=== PATIENT | female | born 1995 | race Caucasian/White ===

== ENCOUNTER 2016-11-08 14:48 | Emergency (ER) | payer BC ==
[~2016-11-08] VITALS: Ht 167.6 cm; Wt 54.4 kg
[2016-11-08] MEDS ORDERED: levETIRAcetam 500mg vial IV ONE (14:57)
--- NOTE | 2016-11-08 14:57 | Emergency Room Report ---
History of Present Illness General Source: Patient, EMS Present Illness HPI Patient presents via EMS after generalized tonic clonic seizure prior to their being called. She's had a seizure in the past. She had MRI and CT which were normal. They elected not to treat her with medications. She had no recollection or warning sign of a seizure coming on today. She has some tenderness in the back of her head and neck which is mild. They placed her in C -spine precautions. The patient denies alcohol or drug usage. She also states that she is not at this time. She did not bite her tongue. No fevers, cough, SHULTZ, URI, NVD, dysuria, rashes. 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[employer] [facility] Reviewed Nursing Documentation: PMH: Agreed, PSxH: Agreed Review of Systems All Other Systems: negative except mentioned in HPI Physical Exam Vital Signs Date Time Temp Pulse Resp B/P Pulse Ox O2 Delivery O2 Flow Rate FiO2 11/08/16 14:48 97.9 78 16 93/63 98 Room Air Sp02 EP Interpretation: reviewed, normal General Appearance: well appearing, no apparent distress, GCS 15 Head: normocephalic, other - occiput min tend, no hematoma Eyes: bilateral eye EOMI, bilateral eye PERRL, bilateral eye normal inspection ENT: moist mucus membranes - no lingual macerations Neck: full range of motion, supple, tender - base of head Respiratory: chest non-tender, lungs clear, normal breath sounds Cardiovascular #1: regular rate, rhythm Cardiovascular #2: 2+ radial (R) Gastrointestinal: normal inspection, normal bowel sounds, non tender, no mass, non-distended, scaphoid Musculoskeletal: back normal, gait/station normal, normal range of motion Neurologic: alert, oriented x3, 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 This is her second episode. She's not taking any medications at this time. Differential includes a electrolyte abnormality, untreated epilepsy, post syncopal seizure amongst others. She's has a CT and MRI done in the past in her exam is nonfocal at this time therefore CT is not indicated at this time. However evaluation will be undertaken with EKG, labs. She'll be treated with Ativan and begun on Keppra. She'll given 500 mg IV and 500 mg by mouth. In addition she will receive Tylenol for the neck tenderness that she has. No significant bony tenderness and x-rays are not indicated at this time. EKG unremarkable. Labs unremarkable. Patient tolerated meds. Some headache. Toradol given with improvement. Patient stable for outpatient observation and treatment. Discussed seizure precautions as well as need for further neurologic evaluation. Laboratory Tests Test 11/08/16 15:00 11/08/16 16:50 White Blood Count 8.8 K/UL (4.8-10.8) Red Blood Count 4.63 M/UL (4.20-5.40) Hemoglobin 13.3 G/DL (12.0-16.0) Hematocrit 42.3 % (37.0-47.0) Mean Corpuscular Volume 91 FL (80-99) Mean Corpuscular Hemoglobin 28.7 PG (27.0-31.0) Mean Corpuscular Hemoglobin Concent 31.4 G/DL (32.0-36.0) L Red Cell Distribution Width 11.9 % (11.6-14.8) Platelet Count 357 K/UL (150-450) Mean Platelet Volume 7.7 FL (6.5-10.1) Neutrophils (%) (Auto) 71.6 % (45.0-75.0) Lymphocytes (%) (Auto) 21.0 % (20.0-45.0) Monocytes (%) (Auto) 6.0 % (1.0-10.0) Eosinophils (%) (Auto) 0.1 % (0.0-3.0) Basophils (%) (Auto) 1.3 % (0.0-2.0) Sodium Level 141 mEQ/L (135-145) Potassium Level 3.9 mEQ/L (3.4-4.9) Chloride Level 100 mEQ/L (98-107) Carbon Dioxide Level 22 mEQ/L (20-30) Anion Gap 19 (5-15) H Blood Urea Nitrogen 9 mg/dL (7-23) Creatinine 0.8 mg/dL (0.5-0.9) Estimate Glomerular Filtration Rate > 60 mL/min (>60) Glucose Level 100 mg/dL (74-106) Calcium Level 9.6 mg/dL (8.6-10.2) Total Bilirubin 0.4 mg/dL (0.0-1.2) Aspartate Amino Transferase (AST) 15 U/L (5-40) Alanine Aminotransferase (ALT) 9 U/L (3-33) Alkaline Phosphatase 58 U/L (35-104) Total Creatine Kinase 56 U/L (26-140) Total Protein 8.0 g/dL (6.6-8.7) Albumin 5.1 g/dL (3.5-5.2) Globulin 2.9 g/dL Albumin/Globulin Ratio 1.7 (1.0-2.7) Urine Color Pale yellow Urine Appearance Clear Urine pH 6 (4.5-8.0) Urine Specific [place] 1.005 (1.005-1.035) Urine Protein Negative (NEGATIVE) Urine Glucose (UA) Negative (NEGATIVE) Urine Ketones 2+ (NEGATIVE) H Urine Occult Blood Negative (NEGATIVE) Urine Nitrite Negative (NEGATIVE) Urine Bilirubin Negative (NEGATIVE) Urine Urobilinogen Normal MG/DL (0.0-1.0) Urine Leukocyte Esterase Negative (NEGATIVE) Urine HCG, Qualitative Negative EKG Diagnostic Results Rate: normal Rhythm: NSR ST Segments: no acute changes - sinus arrhythmia Rhythm Strip Diag. Results EP Interpretation: yes Rhythm: NSR, no PVC's, no ectopy Last Vital Signs Date Time Temp Pulse Resp B/P Pulse Ox O2 Delivery O2 Flow Rate FiO2 11/08/16 17:21 97.9 74 18 104/61 100 Room Air Status: improved Disposition: HOME, SELF-CARE - with co-worker Condition: Improved Scripts Levetiracetam (Keppra) 250 Mg Tablet 500 MG ORAL EVERY 12 HOURS, #60 TAB 0 Refills Prov: Aries Chi M.D. 11/08/16 Aries Chi M.D. Nov 08, 2016 14:57
[2016-11-08] MEDS ORDERED: LORazepam Inj 2mg/ml 1ml IV ONE (15:00)
[2016-11-08] MEDS ORDERED: levETIRAcetam 500 MG in D5W 110 ML IV ONE (15:00)
[2016-11-08 15:17] VITALS: BP 93/63
[2016-11-08 15:26] LABS: BASOPHILS % (AUTO) 1.3 % (0.0-2.0); EOSINOPHILS % (AUTO) 0.1 % (0.0-3.0); MEAN CORPUSCULAR HEMOGLOBIN 28.7 PG (27.0-31.0); MEAN CORPUSCULAR HGB CONC 31.4 G/DL (32.0-36.0); MEAN CORPUSCULAR VOLUME 91 FL (80-99); MEAN PLATELET VOLUME 7.7 FL (6.5-10.1); NEUTROPHILS % (AUTO) 71.6 % (45.0-75.0); PLATELET COUNT 357 K/UL (150-450); RED BLOOD COUNT 4.63 M/UL (4.20-5.40); RED CELL DISTRIBUTION WIDTH 11.9 % (11.6-14.8); WHITE BLOOD COUNT 8.8 K/UL (4.8-10.8)
[2016-11-08 15:41] LABS: ALANINE AMINOTRANSFERASE 9 U/L (3-33); ALBUMIN/GLOBULIN RATIO 1.7 (1.0-2.7); ANION GAP 19 (5-15); ASPARTATE AMINO TRANSFERASE 15 U/L (5-40); CALCIUM 9.6 mg/dL (8.6-10.2); CARBON DIOXIDE 22 mEQ/L (20-30); CHLORIDE 100 mEQ/L (98-107); CREATININE 0.8 mg/dL (0.5-0.9); GLOMERULAR FILTRATION RATE > 60 mL/min (>60); HEMOLYSIS 5; POTASSIUM 3.9 mEQ/L (3.4-4.9); SODIUM 141 mEQ/L (135-145)
[2016-11-08] MEDS ORDERED: Ketorolac 30mg Inj IV ONE (16:30)
[2016-11-08 17:05] LABS: APPEARANCE,URINE CLEAR; KETONES,URINE 2+ (NEGATIVE); LEUKOCYTE ESTERASE ,URINE NEGATIVE (NEGATIVE); NITRITE,URINE NEGATIVE (NEGATIVE); PH,URINE 6 (4.5-8.0); PROTEIN,URINE NEGATIVE (NEGATIVE); UROBILINOGEN,URINE NORMAL MG/DL (0.0-1.0)
[2016-11-08] MEDS ORDERED: KEPPRA500 MG ORAL (17:12)
[2016-11-08 17:16] VITALS: BP 104/61
[2016-11-08 17:21] VITALS: BP 104/61
--- NOTE | 2016-11-10 15:41 | Cardiology Report ---
APPROVED REPORT EKG Measurement Heart [id number] Normal sinus rhythm with sinus arrhythmia Normal ECG
== END 2016-11-08 17:21 | disposition home or self-care (01) ==
LOC: EDBD 14:48 → EMR 15:06
DX: R56.9 Unspecified convulsions (principal)
CPT/HCPCS: 36415; 80053; 80299; 81003; 81025; 82550; 85025; 93005; 96374; 96375; 99284; J1885; J1953; J7040

== ENCOUNTER 2017-06-24 15:40 | Emergency (ER) | payer SELFPAY ==
[~2017-06-24] VITALS: Ht 167.6 cm; Wt 59.0 kg
[~2017-06-24 15:40] MED LIST: KEPPRA500 MG ORAL
[2017-06-24] MEDS ORDERED: NKM (15:50)
[2017-06-24 15:54] VITALS: BP 121/80
--- NOTE | 2017-06-24 16:10 | Emergency Room Report ---
History of Present Illness General Chief Complaint: General Complaint Source: Patient, Medical Record Present Illness HPI 22 yo female patient presents to ER complaining of vaginal spotting x3 months. Reports LMP was from May 29 to . Reports spotting since that time, intermittently. Reports uses 1-5 pads daily. Denies sharp abdominal pain, denies radiation of pain. Denies back pain. Denies currently. Reports , hx of surgical July 2016. Denies hx of PAP smear or OBGYN visit. Denies hx of fainting. Denies passage of clots. Denies dysuria, frequency, urgency. Denies hx of STI. Reports sexually active with one partners, uses protection. Denies use of control for 3 years. Reports hx of anemia. Denies fever, chest pain, SOB, calf pain, SHULTZ, vision changes. Also requesting medical clearance for driving, hx of seizure last year. Allergies: Coded Allergies: No Known Allergies (Unverified , 11/08/16) Patient History Past Medical History: see triage record Last Menstrual Period: 05/29/17 Reviewed Nursing Documentation: PMH: Agreed; PSxH: Agreed Nursing Documentation-PMH Past Medical History: No History, Except For Hx Cardiac Problems: No Hx Hypertension: No Hx Pacemaker: No Hx Asthma: No Hx COPD: No Hx Diabetes: No Hx Cancer: No Hx Gastrointestinal Problems: No Hx Dialysis: No Hx Neurological Problems: No Hx Cerebrovascular Accident: No Hx Seizures: Yes - 11/04 Review of Systems All Other Systems: negative except mentioned in HPI Physical Exam Vital Signs Date Time Temp Pulse Resp B/P (MAP) Pulse Ox O2 Delivery O2 Flow Rate FiO2 06/24/17 15:44 98.4 100 18 121/80 96 Room Air 98.4 Sp02 EP Interpretation: reviewed, normal General Appearance: well appearing, no apparent distress, alert, GCS 15, non- toxic Head: normocephalic, atraumatic Eyes: bilateral eye normal inspection, bilateral eye PERRL Neck: full range of motion Respiratory: lungs clear, normal breath sounds, no rhonchi, no respiratory distress, no accessory muscle use, no wheezing, speaking full sentences Cardiovascular #1: regular rate, rhythm, no edema Gastrointestinal: non tender, soft, no mass, non-distended, no guarding, no rebound Genitourinary: no CVA tenderness, deferred Musculoskeletal: back normal, digits/nails normal, gait/station normal, normal range of motion, non-tender Neurologic: alert, oriented x3, responsive, motor strength/tone normal, sensory intact Skin: no rash Lymphatic: no adenopathy Medical Decision Making PA Attestation Dr. Barboza is my supervising Physician whom patient management has been discussed with. Diagnostic Impression: Primary Impression: Metrorrhagia ER Course Pt presents to ED c/o vaginal spotting. DDX considered but are not limited to menstruation, UTI, . Denies abdominal pain, dizziness, syncope, symptoms of anemia. Does not require labs or imaging at this time. Ordered UA and urine . ER COURSE: Patient resting comfortably, in no acute distress, nontoxic appearing. Informed patient cannot provide medical clearance for driving in ER. Needs approval and clearance from primary care provider. Patient reports understanding and agreement to treatment plan. UA results negative for nitrites, low suspicion for UTI, does not require treatment at this time. Urine negative. Discuss results with patient. Informed patient need outpatient followup and treatment for cause of metrorrhagia and vaginal spotting. F/u with primary care provider for further testing and labs. Does not require evaluation in ER at this time. F/u with OBGYN. F/u with STI clinic if concern for STI. Reports no concern for STI at this time. DISCHARGE: At this time pt. is stable for d/c to home. At this time patient is resting comfortably, in no acute distress, nontoxic appearing, smiling and talking without difficulty. Will provide printed patient care instructions, and any necessary prescriptions. Patient instructed to follow with PCP for further evaluation and request referral to OBGYN for further treatment as needed. Care plan and follow up instructions have been discussed with the patient prior to discharge. Patient reports understanding and agreement to treatment plan. Patient questions asked and answered. ER precautions given, patient instructed to return to ER immediately for any new or worsening of symptoms. Labs Test 06/24/17 16:25 Urine Color Yellow Urine Appearance Clear Urine pH 7 (4.5-8.0) Urine Specific [place] 1.015 (1.005-1.035) Urine Protein 1+ (NEGATIVE) Urine Glucose (UA) Negative (NEGATIVE) Urine Ketones Negative (NEGATIVE) Urine Occult Blood Negative (NEGATIVE) Urine Nitrite Negative (NEGATIVE) Urine Bilirubin Negative (NEGATIVE) Urine Urobilinogen 1 MG/DL (0.0-1.0) Urine Leukocyte Esterase 1+ (NEGATIVE) Urine RBC 0-2 /HPF (0 - 2) Urine WBC 2-4 /HPF (0 - 2) Urine Squamous Epithelial Cells Few /LPF (NONE/OCC) Urine Amorphous Sediment Few /LPF (NONE) Urine Bacteria Few /HPF (NONE) Urine HCG, Qualitative Negative (NEGATIVE) Last Vital Signs Date Time Temp Pulse Resp B/P (MAP) Pulse Ox O2 Delivery O2 Flow Rate FiO2 06/24/17 15:54 98.4 100 18 121/80 96 Room Air 98.4 Disposition: HOME, SELF-CARE Condition: Stable Additional Instructions: Followup with primary care provider in 3 -5 days. Need workup for irregular bleeding. Referral needed for OBGYN. Need PAP smear. Primary care provider can provide medical clearance, not able to provide in ER. Take medications as directed. Patient questions asked and answered. ER precautions given, patient instructed to return to ER immediately for any new or worsening of symptoms. Ricardo Kulkarni Jun 24, 2017 16:10
[2017-06-24 16:41] LABS: APPEARANCE,URINE CLEAR; BILIRUBIN, URINE NEGATIVE (NEGATIVE); GLUCOSE, URINE (UA) NEGATIVE (NEGATIVE); KETONES,URINE NEGATIVE (NEGATIVE); LEUKOCYTE ESTERASE ,URINE 1+ (NEGATIVE); NITRITE,URINE NEGATIVE (NEGATIVE); PH,URINE 7 (4.5-8.0); PROTEIN,URINE 1+ (NEGATIVE); UROBILINOGEN,URINE 1 MG/DL (0.0-1.0)
[2017-06-24 16:44] LABS: COLOR,URINE YELLOW
[2017-06-24 17:02] VITALS: BP 121/80
== END 2017-06-24 17:03 | disposition home or self-care (01) ==
LOC: EMR 16:40
DX: N92.0 Excessive and frequent menstruation with regular cycle (principal)
CPT/HCPCS: 81003; 81025; 99283

== ENCOUNTER 2019-11-23 15:56 | Emergency (ER) | payer SELFPAY ==
[~2019-11-23] VITALS: Ht 167.6 cm; Wt 58.1 kg
[~2019-11-23 15:56] MED LIST changes: +NKM
[2019-11-23 16:05] VITALS: BP 110/68
[2019-11-23 16:26] LABS: APPEARANCE,URINE CLEAR; BILIRUBIN, URINE NEGATIVE (NEGATIVE); COLOR,URINE YELLOW; GLUCOSE, URINE (UA) NEGATIVE (NEGATIVE); KETONES,URINE 4+ (NEGATIVE); LEUKOCYTE ESTERASE ,URINE NEGATIVE (NEGATIVE); NITRITE,URINE NEGATIVE (NEGATIVE); PH,URINE 6 (4.5-8.0); PROTEIN,URINE 2+ (NEGATIVE); UROBILINOGEN,URINE NORMAL MG/DL (0.0-1.0)
[2019-11-23] MEDS ORDERED: Mylanta II UD 30ml ORAL ONE (16:30)
[2019-11-23] MEDS ORDERED: Dicyclomine HCl 10mg/5ml oral soln ORAL ONE (16:30)
[2019-11-23] MEDS ORDERED: Lidocaine 2% Visc 15ml soln ORAL ONE (16:30)
[2019-11-23 16:37] LABS: ANION GAP 13 mmol/L (5-15); BLOOD UREA NITROGEN 12 mg/dL (7-18); CARBON DIOXIDE 29 MMOL/L (21-32); CHLORIDE 97 MMOL/L (98-107); CREATININE 0.9 MG/DL (0.55-1.30); POTASSIUM 3.2 MMOL/L (3.5-5.1); SODIUM 139 MMOL/L (136-145)
[2019-11-23 16:39] LABS: HEMATOCRIT 40.5 % (37.0-47.0); HEMOGLOBIN 13.6 G/DL (12.0-16.0); LYMPHOCYTES % (AUTO) 9.2 % (20.0-45.0); MEAN CORPUSCULAR VOLUME 90 FL (80-99); MONOCYTES % (AUTO) 5.1 % (1.0-10.0); NEUTROPHILS % (AUTO) 84.7 % (45.0-75.0); PLATELET COUNT 354 K/UL (150-450); RED BLOOD COUNT 4.52 M/UL (4.20-5.40); WHITE BLOOD COUNT 11.9 K/UL (4.8-10.8)
[2019-11-23 16:41] LABS: ALANINE AMINOTRANSFERASE 24 U/L (12-78); ALBUMIN 4.6 G/DL (3.4-5.0); ALBUMIN/GLOBULIN RATIO 1.1 (1.0-2.7); ALKALINE PHOSPHATASE 60 U/L (46-116); ASPARTATE AMINO TRANSFERASE 21 U/L (15-37); BILIRUBIN,TOTAL 0.7 MG/DL (0.2-1.0)
[2019-11-23] MEDS ORDERED: ONDANSETRON ODT4 MG BC (17:14)
[2019-11-23] MEDS ORDERED: FAMOTIDINE20 MG ORAL (17:14)
[2019-11-23 17:19] VITALS: BP 112/62
--- NOTE | 2019-11-23 17:52 | Emergency Room Report ---
History of Present Illness General Chief Complaint: Abdominal Pain Source: Patient Present Illness HPI 24-year-old female presents the ED for evaluation. Complaining of abdominal pain with nausea and vomiting. States that last night she drank alcohol. Pain is epigastric, burning, 5 out of 10, nonradiating. Notes multiple episodes of vomiting. Denies any diarrhea. Denies any chest pain or shortness of breath. Denies drug use. No other aggravating relieving factors. 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 Patient History Past Medical History: seizures Past Surgical History: none Pertinent Family History: none Social History: Denies: smoking, alcohol use, drug use Last Menstrual Period: 11/16/2019 Now: No Immunizations: UTD Reviewed Nursing Documentation: PMH: Agreed; PSxH: Agreed Nursing Documentation-PMH Hx Cardiac Problems: No Hx Hypertension: No Hx Pacemaker: No Hx Asthma: No Hx COPD: No Hx Diabetes: No Hx Cancer: No Hx Gastrointestinal Problems: No Hx Dialysis: No Hx Neurological Problems: No Hx Cerebrovascular Accident: No Hx Seizures: Yes - 11/04 Review of Systems All Other Systems: negative except mentioned in HPI Physical Exam Vital Signs Date Time Temp Pulse Resp B/P (MAP) Pulse Ox O2 Delivery O2 Flow Rate FiO2 11/23/19 16:00 97.5 107 20 105/64 (78) 96 Room Air Sp02 EP Interpretation: reviewed, normal General Appearance: no apparent distress, alert, GCS 15, non-toxic Head: normocephalic, atraumatic Eyes: bilateral eye normal inspection, bilateral eye PERRL ENT: hearing grossly normal, normal pharynx, no angioedema, normal voice Neck: full range of motion, supple/symm/no masses Respiratory: chest non-tender, lungs clear, normal breath sounds, speaking full sentences Cardiovascular #1: regular rate, rhythm, no edema Cardiovascular #2: 2+ carotid (R), 2+ carotid (L), 2+ radial (R), 2+ radial (L) , 2+ dorsalis pedis (R), 2+ dorsalis pedis (L) Gastrointestinal: normal bowel sounds, soft, non-distended, no guarding, no rebound, tenderness - epigastric Rectal: deferred Genitourinary: normal inspection, no CVA tenderness Musculoskeletal: back normal, normal range of motion, gait/station normal, non- tender Neurologic: alert, motor strength/tone normal, oriented x3, sensory intact, responsive, speech normal Psychiatric: judgement/insight normal, memory normal, mood/affect normal, no suicidal/homicidal ideation Reflexes: 3+ bicep (R), 3+ bicep (L), 3+ tricep (R), 3+ tricep (L), 3+ knee (R) , 3+ knee (L) Skin: no rash Lymphatic: no adenopathy Medical Decision Making Diagnostic Impression: Primary Impression: Gastritis Qualified Codes: K29.00 - Acute gastritis without bleeding ER Course Hospital Course 24 yo F presents to ED c/o abd pain and vomiting differential diagnosis: gastritis, SBO, cholecystits Clinical course Patient placed on stretcher. On night monitor. After initial history and physical I ordered labs, IV fluids, Zofran, GI cocktail and pepcid Labs - no leukocytosis, no electrolyte abnormalities, LFTs normal, UA unremarkable Upon reassessment, patient states she feels better. safe for discharge with close outpatient followup.i'll provide referrals. I feel this is a highly complex case requiring extensive working including EKG/ Rhythm strip, Xray/CT/US, Blood/urine lab work, repeat exams while in ED, and administration of strong opiates/narcotics for pain control, admission to hospital or close patient follow up. Diagnosis - gastritis Stable and discharged to home with prescriptions for pepcid and zofran. Followup with PMD. Return to ED if symptoms recur or worsen Laboratory Tests Test 11/23/19 16:10 11/23/19 16:18 Urine Color Yellow Urine Appearance Clear Urine pH 6 (4.5-8.0) Urine Specific [place] 1.025 (1.005-1.035) Urine Protein 2+ (NEGATIVE) H Urine Glucose (UA) Negative (NEGATIVE) Urine Ketones 4+ (NEGATIVE) H Urine Blood Negative (NEGATIVE) Urine Nitrite Negative (NEGATIVE) Urine Bilirubin Negative (NEGATIVE) Urine Urobilinogen Normal MG/DL (0.0-1.0) Urine Leukocyte Esterase Negative (NEGATIVE) Urine RBC 0-2 /HPF (0 - 2) Urine WBC 0-2 /HPF (0 - 2) Urine Squamous Epithelial Cells Few /LPF (NONE/OCC) Urine Bacteria Few /HPF (NONE) Urine Mucus Moderate /LPF (NONE/OCC) H Urine HCG, Qualitative Negative (NEGATIVE) White Blood Count 11.9 K/UL (4.8-10.8) H Red Blood Count 4.52 M/UL (4.20-5.40) Hemoglobin 13.6 G/DL (12.0-16.0) Hematocrit 40.5 % (37.0-47.0) Mean Corpuscular Volume 90 FL (80-99) Mean Corpuscular Hemoglobin 30.1 PG (27.0-31.0) Mean Corpuscular Hemoglobin Concent 33.5 G/DL (32.0-36.0) Red Cell Distribution Width 12.0 % (11.6-14.8) Platelet Count 354 K/UL (150-450) Mean Platelet Volume 8.8 FL (6.5-10.1) Neutrophils (%) (Auto) 84.7 % (45.0-75.0) H Lymphocytes (%) (Auto) 9.2 % (20.0-45.0) L Monocytes (%) (Auto) 5.1 % (1.0-10.0) Eosinophils (%) (Auto) 0.0 % (0.0-3.0) Basophils (%) (Auto) 1.0 % (0.0-2.0) Sodium Level 139 MMOL/L (136-145) Potassium Level 3.2 MMOL/L (3.5-5.1) L Chloride Level 97 MMOL/L (98-107) L Carbon Dioxide Level 29 MMOL/L (21-32) Anion Gap 13 mmol/L (5-15) Blood Urea Nitrogen 12 mg/dL (7-18) Creatinine 0.9 MG/DL (0.55-1.30) Estimat Glomerular Filtration Rate > 60 mL/min (>60) Glucose Level 105 MG/DL (74-106) Calcium Level 9.0 MG/DL (8.5-10.1) Total Bilirubin 0.7 MG/DL (0.2-1.0) Aspartate Amino Transf (AST/SGOT) 21 U/L (15-37) Alanine Aminotransferase (ALT/SGPT) 24 U/L (12-78) Alkaline Phosphatase 60 U/L (46-116) Total Protein 8.7 G/DL (6.4-8.2) H Albumin 4.6 G/DL (3.4-5.0) Globulin 4.1 g/dL Albumin/Globulin Ratio 1.1 (1.0-2.7) Lipase 76 U/L (73-393) Last Vital Signs Date Time Temp Pulse Resp B/P (MAP) Pulse Ox O2 Delivery O2 Flow Rate FiO2 11/23/19 17:19 97.8 92 16 112/62 98 Room Air Status: improved Disposition: HOME, SELF-CARE Condition: Stable Scripts Ondansetron Odt* (ZOFRAN ODT*) 4 Mg Tab.rapdis 4 MG BC EVERY 6 HOURS PRN for Nausea & Vomiting, #20 TAB 0 Refills Prov: Sundar Dowling MD 11/23/19 Famotidine* (Pepcid 20mg tablet*) 20 Mg Tablet 20 MG ORAL DAILY, #30 TAB 0 Refills Prov: Sundar Dowling MD 11/23/19 Referrals: NOT CHOSEN IPA/,REFERRING (PCP) Chiqui Grimes [facility] Patient Instructions: Gastritis, Adult, [id number] Sundar Dowling MD Nov 23, 2019 17:52
== END 2019-11-23 17:19 | disposition home or self-care (01) ==
LOC: EMR 16:16
DX: K29.00 Acute gastritis without bleeding (principal); G40.909 Epilepsy, unspecified, not intractable, without status epilepticus
CPT/HCPCS: 36415; 80053; 81003; 81025; 83690; 85025; 96361; 96374; 96375; 99284; J2405; J7030; S0028

== ENCOUNTER 2020-02-03 12:42 | Inpatient (IN) | payer SELFPAY ==
[~2020-02-03] VITALS: Ht 167.6 cm; Wt 59.0 kg
[~2020-02-03 12:42] MED LIST changes: +FAMOTIDINE20 MG ORAL; +ONDANSETRON ODT4 MG BC
[2020-02-03] MEDS ORDERED: Pantoprazole Inj IVP ONE (12:45)
--- NOTE | 2020-02-03 12:45 | NUR ---
ED Nurse Note: Pt brought in by ambulance from home c/o n/v with dark emesis. Pt reports drinking and using cocaine last night. Respirations even and unlabored on room air. Vitals stable as documented. A+Ox4, speaking in complete sentences.
[2020-02-03 13:00] VITALS: BP 122/79
--- NOTE | 2020-02-03 13:04 | Emergency Room Report ---
History of Present Illness General Chief Complaint: Abdominal Pain Source: Patient, EMS Present Illness HPI Patient is a 24-year-old female presents the ER complaining of nausea and vomiting. Patient states that she drank a lot of alcohol last night and did some cocaine and today has epigastric pain with nausea and vomiting. She states that she has had similar problems in the past after alcohol abuse. She denies any fever or chills. She denies any chest pain or shortness of breath. She denies any dysuria or hematuria. She denies any diarrhea. Patient was brought in by EMS from home. Allergies: Coded Allergies: No Known Allergies (Unverified , 11/08/16) COVID-19 Screening Contact w/high risk pt: No Experienced COVID-19 symptoms?: Yes COVID-19 Testing performed DISPLAY FABRICATOR: No Patient History Last Menstrual Period: 2 WEEKS AGO Reviewed Nursing Documentation: PMH: Agreed; PSxH: Agreed Nursing Documentation-PMH Hx Cardiac Problems: No Hx Hypertension: No Hx Pacemaker: No Hx Asthma: No Hx COPD: No Hx Diabetes: No Hx Cancer: No Hx Gastrointestinal Problems: No Hx Dialysis: No Hx Neurological Problems: No Hx Cerebrovascular Accident: No Hx Seizures: Yes - 11/04 Review of Systems All Other Systems: negative except mentioned in HPI Physical Exam Vital Signs Date Time Temp Pulse Resp B/P (MAP) Pulse Ox O2 Delivery O2 Flow Rate FiO2 02/03/20 12:38 97.0 114 16 110/74 (86) 100 Room Air Sp02 EP Interpretation: reviewed, normal General Appearance: alert, GCS 15, non-toxic, mild distress Head: normocephalic, atraumatic Eyes: bilateral eye normal inspection, bilateral eye PERRL ENT: hearing grossly normal, normal pharynx, no angioedema, normal voice, dry mucus membranes Neck: full range of motion, supple/symm/no masses Respiratory: chest non-tender, lungs clear, normal breath sounds, speaking full sentences Cardiovascular #1: tachycardia Gastrointestinal: normal bowel sounds, non tender, soft, non-distended, no guarding, no rebound Rectal: deferred Genitourinary: no CVA tenderness Musculoskeletal: normal range of motion 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 Patient has leukocytosis with white count of 14,000. Patient is pending the rest of her labs as well as CT abdomen pelvis. Patient signed out to oncoming physician at 1400 pending labs, CT reevaluation and final disposition Laboratory Tests Test 02/03/20 12:50 White Blood Count 14.5 K/UL (4.8-10.8) H Red Blood Count 4.61 M/UL (4.20-5.40) Hemoglobin 13.8 G/DL (12.0-16.0) Hematocrit 43.5 % (37.0-47.0) Mean Corpuscular Volume 94 FL (80-99) Mean Corpuscular Hemoglobin 30.0 PG (27.0-31.0) Mean Corpuscular Hemoglobin Concent 31.8 G/DL (32.0-36.0) L Red Cell Distribution Width 12.3 % (11.6-14.8) Platelet Count 386 K/UL (150-450) Mean Platelet Volume 8.0 FL (6.5-10.1) Neutrophils (%) (Auto) 80.8 % (45.0-75.0) H Lymphocytes (%) (Auto) 11.9 % (20.0-45.0) L Monocytes (%) (Auto) 6.5 % (1.0-10.0) Eosinophils (%) (Auto) 0.0 % (0.0-3.0) Basophils (%) (Auto) 0.8 % (0.0-2.0) Prothrombin Time Pending Prothrombin Time INR Pending Activated Partial Thromboplast Time Pending Urine Color Yellow Urine Appearance Clear Urine pH 6.5 (4.5-8.0) Urine Specific [place] 1.025 (1.005-1.035) Urine Protein 3+ (NEGATIVE) H Urine Glucose (UA) Negative (NEGATIVE) Urine Ketones 2+ (NEGATIVE) H Urine Blood 2+ (NEGATIVE) H Urine Nitrite Negative (NEGATIVE) Urine Bilirubin Negative (NEGATIVE) Urine Urobilinogen Normal MG/DL (0.0-1.0) Urine Leukocyte Esterase 1+ (NEGATIVE) H Urine RBC 2-4 /HPF (0 - 2) H Urine WBC 0-2 /HPF (0 - 2) Urine Squamous Epithelial Cells Few /LPF (NONE/OCC) Urine Bacteria Few /HPF (NONE) Urine Mucus Moderate /LPF (NONE/OCC) H Urine HCG, Qualitative Negative (NEGATIVE) Sodium Level Pending Potassium Level Pending Chloride Level Pending Carbon Dioxide Level Pending Blood Urea Nitrogen Pending Creatinine Pending Estimated Glomerular Filtration Rate Pending Glucose Level Pending Calcium Level Pending Magnesium Level Pending Total Bilirubin Pending Aspartate Amino Transferase (AST) Pending Alanine Aminotransferase (ALT) Pending Alkaline Phosphatase Pending Total Protein Pending Albumin Pending Globulin Pending Lipase Pending Last Vital Signs Date Time Temp Pulse Resp B/P (MAP) Pulse Ox O2 Delivery O2 Flow Rate FiO2 02/03/20 12:38 97.0 114 16 110/74 (86) 100 Room Air Signed Out To: Dr. Piña at 1400 Referrals: NOT CHOSEN IPA/,REFERRING (PCP) Additional Instructions: Please note that this report is being documented using DRAGON technology. This can lead to erroneous entry secondary to incorrect interpretation by the dictating instrument. Marj Cardona M.D. Feb 03, 2020 13:04
[2020-02-03 13:26] LABS: APPEARANCE,URINE CLEAR; BILIRUBIN, URINE NEGATIVE (NEGATIVE); GLUCOSE, URINE (UA) NEGATIVE (NEGATIVE); KETONES,URINE 2+ (NEGATIVE); LEUKOCYTE ESTERASE ,URINE 1+ (NEGATIVE); NITRITE,URINE NEGATIVE (NEGATIVE); PH,URINE 6.5 (4.5-8.0); PROTEIN,URINE 3+ (NEGATIVE); UROBILINOGEN,URINE NORMAL MG/DL (0.0-1.0)
[2020-02-03 13:29] LABS: BASOPHILS % (AUTO) 0.8 % (0.0-2.0); HEMATOCRIT 43.5 % (37.0-47.0); HEMOGLOBIN 13.8 G/DL (12.0-16.0); LYMPHOCYTES % (AUTO) 11.9 % (20.0-45.0); MEAN CORPUSCULAR VOLUME 94 FL (80-99); MONOCYTES % (AUTO) 6.5 % (1.0-10.0); NEUTROPHILS % (AUTO) 80.8 % (45.0-75.0); PLATELET COUNT 386 K/UL (150-450); RED BLOOD COUNT 4.61 M/UL (4.20-5.40); RED CELL DISTRIBUTION WIDTH 12.3 % (11.6-14.8); WHITE BLOOD COUNT 14.5 K/UL (4.8-10.8)
[2020-02-03 13:30] LABS: COLOR,URINE YELLOW
[2020-02-03 13:52] LABS: ALANINE AMINOTRANSFERASE 29 U/L (12-78); ALBUMIN 4.9 G/DL (3.4-5.0); ALBUMIN/GLOBULIN RATIO 1.2 (1.0-2.7); ALKALINE PHOSPHATASE 62 U/L (46-116); ANION GAP 14 mmol/L (5-15); ASPARTATE AMINO TRANSFERASE 20 U/L (15-37); BILIRUBIN,TOTAL 0.6 MG/DL (0.2-1.0); BLOOD UREA NITROGEN 10 mg/dL (7-18); CALCIUM 9.5 MG/DL (8.5-10.1); CARBON DIOXIDE 27 MMOL/L (21-32); CHLORIDE 96 MMOL/L (98-107); CREATININE 0.8 MG/DL (0.55-1.30); SODIUM 137 MMOL/L (136-145)
[2020-02-03 13:53] LABS: POTASSIUM 2.7 MMOL/L (3.5-5.1)
[2020-02-03] MEDS ORDERED: Omnipaque-300 100ml vial INJ PRN (14:00)
--- NOTE | 2020-02-03 14:55 | Emergency Room Report ---
Physical Exam Vital Signs Date Time Temp Pulse Resp B/P (MAP) Pulse Ox O2 Delivery O2 Flow Rate FiO2 02/03/20 12:38 97.0 114 16 110/74 (86) 100 Room Air Medical Decision Making Diagnostic Impression: Primary Impression: Leukocytosis Additional Impressions: Abdominal pain Hypokalemia Enteritis Ovarian cyst ER Course Assumed care of the patient from the previous provider at approximately 1430. Please refer to initial note for full history and physical exam. Briefly, recent substance and alcohol use since for evaluation of persistent vomiting. Found to be hypokalemic and requiring IV and oral supplementation. At the time of signout CT scan was pending. Shows bilateral ovarian cyst and signs of enteritis. Patient receiving IV fluids as well. Will be admitted to telemetry. There are no EKG changes. Dr. Herrera is panel physician and has accepted her to his service. EKG Diagnostic Results EKG Time: 14:46 Rate: normal Rhythm: NSR ST Segments: no acute changes Other Impression Sinus rhythm, normal axis, normal intervals, QTC 4 6 4 ms Rhythm Strip Diag. Results Rhythm Strip Time: 14:46 EP Interpretation: yes Rate: 95 Rhythm: NSR, no PVC's, no ectopy CT/MRI/US Diagnostic Results CT/MRI/US Diagnostic Results : Impression Final Report CT ABDOMEN & PELVIS With Contrast HISTORY:Abdominal pain TECHNIQUE:One or more of the following dose reduction techniqueswere used: autom ated exposure control, adjustment of the mAand/or kVaccording to patient size, use of iterative reconstruction technique. Axial CT images of the abdomen and pelvis obtained with intravenous contrast with coronal and sagittal reconstructions. CTDI:3.8 DLP: 192.10 One or more of the following dose reduction techniqueswere used: automated exposure control, adjustment of the mAand/or kVaccording to patient size, use of iterative reconstruction technique. Total Examvolume computed tomographydose index (CTDIvol) = mGyand Dose Length Product (DLP) = mGY-c COMPARISON:None FINDINGS:Normal heart size. No acute osseous abnormality. Lung bases are unremarkable. The liver and spleen and gallbladder and adrenal glands demonstrate no acute abnormality. Small cyst within the lowright kidney. No hydronephrosis or nephrolithiasis. Noninflamed appendix. Nonspecific fluid within the small and large bowel without free air or obstructive changes. Bilateral ovarian cysts visible with underdistended urinarybladder. Right ovarian 2.7 x 2.3 cmcyst demonstrated. Left ovarian cyst measuring 2.5 x 2 cm. No significant lymphadenopathyappreciated. No free fluid appreciated in the pelvis. No uterine mass appreciated. Anteverted uteruswith fluid in endometrial canal. IMPRESSION:Bilateral ovarian cysts in both ovarieswhich maybe further evaluated with pelvic ultrasound. Nonspecific fluid within the small and large bowel which maybe associated with infectious or inflammatoryenteritis. Noninflamed appendix. No free air or bowel obstruction. Noninflamed appendix demonstrated. Radiologist: Truong Santamaria M.D. Electronically Signed: 02/03/20 15:12 Study ready at 14:43 and initial results transmitted at 15:12 Last Vital Signs Date Time Temp Pulse Resp B/P (MAP) Pulse Ox O2 Delivery O2 Flow Rate FiO2 02/03/20 13:00 108 16 Room Air 02/03/20 13:00 97.3 122/79 99 Disposition: ADMITTED INPATIENT Condition: Serious Referrals: NOT CHOSEN IPA/,REFERRING (PCP) Additional Instructions: Please note that this report is being documented using [employer] technology. This can lead to erroneous entry secondary to incorrect interpretation by the dictating instrument. Kamran Piña MD Feb 03, 2020 14:55
--- NOTE | 2020-02-03 15:13 | Diagnostic Imaging Report ---
CT ABDOMEN + PELVIS With Contrast HISTORY: Abdominal pain TECHNIQUE: One or more of the following dose reduction techniques were used: automated exposure control, adjustment of the mA and/or kV according to patient size, use of iterative reconstruction technique. Axial CT images of the abdomen and pelvis obtained with intravenous contrast with coronal and sagittal reconstructions. CTDI:3.8 DLP: 192.10 One or more of the following dose reduction techniques were used: automated exposure control, adjustment of the mA and/or kV according to patient size, use of iterative reconstruction technique. Total Exam volume computed tomography dose index (CTDIvol) = mGy and Dose Length Product (DLP) = mGY-c COMPARISON: None FINDINGS: Normal heart size. No acute osseous abnormality. Lung bases are unremarkable. The liver and spleen and gallbladder and adrenal glands demonstrate no acute abnormality. Small cyst within the low right kidney. No hydronephrosis or nephrolithiasis. Noninflamed appendix. Nonspecific fluid within the small and large bowel without free air or obstructive changes. Bilateral ovarian cysts visible with underdistended urinary bladder. Right ovarian 2.7 x 2.3 cm cyst demonstrated. Left ovarian cyst measuring 2.5 x 2 cm. No significant lymphadenopathy appreciated. No free fluid appreciated in the pelvis. No uterine mass appreciated. Anteverted uterus with fluid in endometrial canal. IMPRESSION: Bilateral ovarian cysts in both ovaries which may be further evaluated with pelvic ultrasound. Nonspecific fluid within the small and large bowel which may be associated with infectious or inflammatory enteritis. Noninflamed appendix. No free air or bowel obstruction. Noninflamed appendix demonstrated.
--- NOTE | 2020-02-03 15:17 | NUR ---
ED Nurse Note: REPORT GIVEN TO CASH NAVA
--- NOTE | 2020-02-03 15:25 | NUR ---
NURSE NOTES: Received report from CASH Friedman from ER. Pt is AOx4, stable and [place]ulating [place] to bed on her own. Belongings accounted for and signed with Pt. Pt tele monitor applied. Pt vitals 101/60, 94% spo2 on RA, 19RR unlabored and even, 61HR Bilaterally, 98.1 F. Pt IV on LAC 18g running NS and 10 KCL, asymptomatic and intact. Pt has no complaints of pain, N/V at this time. Pt bed low and locked, call light in reach and bed alarm on. Pt verbalized understanding to call for help. Dr Chavis called for admitting orders. awaiting call back.
--- NOTE | 2020-02-03 15:25 | NUR ---
ED Nurse Note: Pt transferred safely on the monitor to 2E. Transferred with all belongings.
[2020-02-03 16:00] VITALS: BP 101/60
[2020-02-03] MEDS ORDERED: Acetaminophen 500mg (ES) tab ORAL PRN (17:00)
--- NOTE | 2020-02-03 17:00 | NUR ---
NURSE NOTES: Pt is stable on RA, sleeping in bed.
--- NOTE | 2020-02-03 18:35 | NUR ---
NURSE NOTES: Pt expressed need to go AMA because her dog was left home alone all day and no one could go help her. explained risks and benefits to Pt and stressed the severity of low potassium level such as 2.7. Communicated this to doctor who spoke to pt regarding risks and benefits to Pt on phone. pt still wanted to go AMA.
--- NOTE | 2020-02-03 19:12 | NUR ---
NURSE NOTES: Pt wanted to go AMA because she said no one could care for her dog, she said she has no family and none of her friends could help her at this time. Explained to pt risks of low potassium level of 2.7 and the importance of seeking medical attention immediately after taking care of what needs to be done or if symptoms reoccur. Emphasized to how low her potassium was. Pt verbalized understanding and said she would come back immediately to ER. AMA form signed by Pt, AOx4. Pt IV on LAC removed, catheter intact. tele monitor removed. Pt belongings left in belongings of white shorts, torres sandals, richardson shirt and black hoodie. Pt left with phone in hand. pt education given prior to AMA again. pt verbalized understanding and importance of seeking medical attention. Walked Pt down to [facility] where she was met with her uber. When Pt left hospital, pt was stable on RA w/ no s/s or complaints of distress. Notified Dr Coyle of Pt AMA departure after Pt got in Uber. acknowledged.
--- NOTE | 2020-02-04 08:12 | Discharge Summary ---
Discharge Summary Discharge Summary _ DATE OF ADMISSION: 02/03/2020 DATE OF DISCHARGE: 02/03/2020 Patient left AGAINST MEDICAL ADVICE REASON FOR ADMISSION: 24 years old female with past medical history of alcohol abuse, episodes of seizures in 2014 and 2016, presented to emergency department complaining of nausea and vomiting. Patient reported drinking a lot of alcohol the night before . She also admitted to using cocaine. She reported epigastric pain with associated nausea and vomiting. Patient reported similar problems in the past after drinking alcohol. She denied fever and chills. She denied chest pain or shortness of breath. She denied dysuria, hematuria or diarrhea. Upon evaluation patient was tachycardic. No fever. Pulse oximetry 100% on room air. Laboratory work-up revealed leukocytosis WBC 14.5, stable hemoglobin, hematocrit and platelet count. Potassium 2.7. Stable other electrolytes. Stable renal parameters and LFT. Urinalysis revealed +3 protein, but no evidence of urinary tract infection. Urine test was negative. EKG revealed sinus rhythm no acute ischemic changes CT scan of the abdomen and pelvis revealed bilateral ovarian cysts. Nonspecific fluid within the small and large bowel may be associated with infectious or inflammatory enteritis. Noninflamed appendix. No free air or bowel obstruction. In emergency department patient received liter of fluids. Patient received antiemetic, Protonix. Potassium was replaced. Patient subsequently admitted to telemetry floor for further management. HOSPITAL COURSE: Patient admitted to telemetry floor. Patient started on the IV hydration. Pain management was addressed. GI prophylaxis with Protonix provided. Seizure precaution maintained. Patient continued on Keppra. Later in the day patient decided to go AGAINST MEDICAL ADVICE. The risks and consequences of signing AGAINST MEDICAL ADVICE were discussed with patient in detail. Patient verbalized understanding, nevertheless signed AMA form and left. FINAL DIAGNOSES: Leukocytosis Enteritis Abdominal pain Ovarian cyst Hypokalemia I have been assigned to dictate discharge summary for this account. I was not involved in the patient's management. Sherry Borges NP Feb 04, 2020 08:12
== END 2020-02-03 19:15 | disposition left against medical advice (07) | DRG 392 ==
LOC: EDBD 12:42 → EMR 12:55 → EDBEDREQ 14:57 → 2E 15:05
DX: K52.9 Noninfective gastroenteritis and colitis, unspecified (principal); E87.1 Hypo-osmolality and hyponatremia; G40.89 Other seizures; N83.202 Unspecified ovarian cyst, left side; N83.201 Unspecified ovarian cyst, right side; F10.10 Alcohol abuse, uncomplicated
CPT/HCPCS: 36415; 74177; 80053; 81003; 81025; 83690; 83735; 85025; 85610; 85730; 93005; 96361; 96365; 96366; 96375; 99285; J2405; J7030; J8499

== ENCOUNTER 2020-02-04 03:26 | Inpatient (IN) | payer SELFPAY ==
[~2020-02-04] VITALS: Ht 167.6 cm; Wt 59.0 kg
[2020-02-04] MEDS ORDERED: Dicyclomine HCl 10mg/5ml oral soln ORAL ONE (03:30)
[2020-02-04] MEDS ORDERED: Lidocaine 2% Visc 15ml soln ORAL ONE (03:30)
[2020-02-04] MEDS ORDERED: Mylanta II UD 30ml ORAL ONE (03:30)
--- NOTE | 2020-02-04 03:36 | Emergency Room Report ---
History of Present Illness General Chief Complaint: Nausea, Vomiting, and Diarrhea Present Illness HPI 24-year-old female here with nausea and vomiting. Patient was here in the emergency department yesterday for the same complaints after a large amount of cocaine use and alcohol use. She was found to be hypokalemic with a potassium of 2.7. She was admitted to telemetry. However soon after the patient was admitted she left AGAINST MEDICAL ADVICE because "I had to go take care of my dog." Patient says that she went home and her vomiting came back. Denies more drug or alcohol use. Complaining of diffuse abdominal discomfort. No headache, vision changes, fevers, chills, chest pain, palpitation, shortness of breath, cough, back pain, diarrhea, dysuria. The patient is actively vomiting here in the emergency department. Denies hematemesis. Of note the patient did have a CT scan performed yesterday which showed an ovarian cyst and signs of gastritis but no other acute abnormalities. Allergies: Coded Allergies: No Known Allergies (Unverified , 11/08/16) COVID-19 Screening Contact w/high risk pt: No Experienced COVID-19 symptoms?: No Nursing Documentation-PMH Hx Cardiac Problems: No Hx Hypertension: No Hx Pacemaker: No Hx Asthma: No Hx COPD: No Hx Diabetes: No Hx Cancer: No Hx Gastrointestinal Problems: No Hx Dialysis: No Hx Neurological Problems: No Hx Cerebrovascular Accident: No Hx Seizures: Yes - 2014,2016 Review of Systems All Other Systems: negative except mentioned in HPI Physical Exam Sp02 EP Interpretation: reviewed, normal General Appearance: alert, non-toxic, mild distress, other - Actively vomiting Head: normocephalic, atraumatic Eyes: bilateral eye normal inspection, bilateral eye PERRL ENT: hearing grossly normal, normal pharynx, no angioedema, normal voice Neck: full range of motion, supple/symm/no masses Respiratory: chest non-tender, lungs clear, normal breath sounds, speaking full sentences Cardiovascular #1: regular rate, rhythm, no edema Cardiovascular #2: 2+ carotid (R), 2+ carotid (L), 2+ radial (R), 2+ radial (L), 2+ dorsalis pedis (R), 2+ dorsalis pedis (L) Gastrointestinal: normal bowel sounds, non tender, soft, non-distended, no guarding, no rebound Rectal: deferred Genitourinary: normal inspection, no CVA tenderness Musculoskeletal: back normal, normal range of motion, gait/station normal, non- tender Neurologic: alert, motor strength/tone normal, oriented x3, sensory intact, responsive, speech normal Psychiatric: judgement/insight normal, memory normal, mood/affect normal, no suicidal/homicidal ideation Lymphatic: no adenopathy Medical Decision Making Diagnostic Impression: Primary Impression: Abdominal pain Additional Impressions: Vomiting Intractable vomiting Hypokalemia ER Course EKG: NSR, no ischemia, intervals WNL. No ectopy. 64 bpm Rhythm strip: patient monitored for arrhythmias - no malignant dysrhythmias, runs of PVCs, nor pauses noted Laboratory Tests Test 02/04/20 04:04 White Blood Count 13.1 K/UL (4.8-10.8) H Red Blood Count 4.15 M/UL (4.20-5.40) L Hemoglobin 12.7 G/DL (12.0-16.0) Hematocrit 39.1 % (37.0-47.0) Mean Corpuscular Volume 94 FL (80-99) Mean Corpuscular Hemoglobin 30.6 PG (27.0-31.0) Mean Corpuscular Hemoglobin Concent 32.5 G/DL (32.0-36.0) Red Cell Distribution Width 12.5 % (11.6-14.8) Platelet Count 318 K/UL (150-450) Mean Platelet Volume 7.3 FL (6.5-10.1) Neutrophils (%) (Auto) 65.8 % (45.0-75.0) Lymphocytes (%) (Auto) 23.1 % (20.0-45.0) Monocytes (%) (Auto) 9.1 % (1.0-10.0) Eosinophils (%) (Auto) 0.8 % (0.0-3.0) Basophils (%) (Auto) 1.2 % (0.0-2.0) Sodium Level 139 MMOL/L (136-145) Potassium Level 3.4 MMOL/L (3.5-5.1) L Chloride Level 105 MMOL/L (98-107) Carbon Dioxide Level 26 MMOL/L (21-32) Anion Gap 8 mmol/L (5-15) Blood Urea Nitrogen 10 mg/dL (7-18) Creatinine 0.8 MG/DL (0.55-1.30) Estimated Glomerular Filtration Rate > 60 mL/min (>60) Glucose Level 107 MG/DL (74-106) H Calcium Level 8.3 MG/DL (8.5-10.1) L Magnesium Level 2.0 MG/DL (1.8-2.4) Total Bilirubin 0.2 MG/DL (0.2-1.0) Aspartate Amino Transferase (AST) 17 U/L (15-37) Alanine Aminotransferase (ALT) 25 U/L (12-78) Alkaline Phosphatase 54 U/L (46-116) Total Protein 7.1 G/DL (6.4-8.2) Albumin 3.7 G/DL (3.4-5.0) Globulin 3.4 g/dL Albumin/Globulin Ratio 1.1 (1.0-2.7) Lipase 126 U/L (73-393) Salicylates Level 0.7 ug/mL (2.8-20) L Acetaminophen Level < 2 MCG/ML (10-30) L Serum Alcohol < 3 mg/dL 24-year-old female here with abdominal pain and vomiting. Patient was here yesterday and was found to have severe abdominal pain and vomiting secondary to gastritis, alcohol and cocaine use. She had a CT scan performed yesterday that was significant for bilateral ovarian cysts and evidence of enteritis. Patient left AGAINST MEDICAL ADVICE earlier today and return to the emergency department as her symptoms returned. Here in the emergency department the patient received multiple doses of pain meds and antiemetics with eventual resolution of her symptoms. Her hypokalemia had improved but potassium was still slightly low at 3.4. Potassium repletion was started in the emergency department. She was given 1 L of IV normal saline. Admitted to [facility] for intractable vomiting. Igor Romero M.D. Feb 04, 2020 03:36
--- NOTE | 2020-02-04 03:40 | NUR ---
ED Nurse Note: Patient brought in by ambulance RA [id number] from home with c/o nausea and vomiting. Patient was admitted at the hospital and left AMA 02/03. Per EMS patient took cocaine and alcohol before onset of s/sx. Patient denies fever&chills, CP//SOB. PAtient placed on monitor bed.
--- NOTE | 2020-02-04 03:41 | NUR ---
ED Nurse Note: ERMD at bedside
--- NOTE | 2020-02-04 03:42 | NUR ---
ED Nurse Note: Line started and blood sent to lab
[2020-02-04 03:57] VITALS: BP 110/70
[2020-02-04 04:08] LABS: BASOPHILS % (AUTO) 1.2 % (0.0-2.0); EOSINOPHILS % (AUTO) 0.8 % (0.0-3.0); HEMATOCRIT 39.1 % (37.0-47.0); HEMOGLOBIN 12.7 G/DL (12.0-16.0); LYMPHOCYTES % (AUTO) 23.1 % (20.0-45.0); MEAN CORPUSCULAR VOLUME 94 FL (80-99); MONOCYTES % (AUTO) 9.1 % (1.0-10.0); NEUTROPHILS % (AUTO) 65.8 % (45.0-75.0); PLATELET COUNT 318 K/UL (150-450); RED BLOOD COUNT 4.15 M/UL (4.20-5.40); RED CELL DISTRIBUTION WIDTH 12.5 % (11.6-14.8); WHITE BLOOD COUNT 13.1 K/UL (4.8-10.8)
[2020-02-04] MEDS ORDERED: Haloperidol Lactate 2 MG in D5W 55 ML IVPB ONE (04:15)
[2020-02-04 04:16] LABS: ANION GAP 8 mmol/L (5-15); BLOOD UREA NITROGEN 10 mg/dL (7-18); CALCIUM 8.3 MG/DL (8.5-10.1); CARBON DIOXIDE 26 MMOL/L (21-32); CHLORIDE 105 MMOL/L (98-107); CREATININE 0.8 MG/DL (0.55-1.30); POTASSIUM 3.4 MMOL/L (3.5-5.1); SODIUM 139 MMOL/L (136-145)
[2020-02-04 04:20] LABS: ALANINE AMINOTRANSFERASE 25 U/L (12-78); ALBUMIN 3.7 G/DL (3.4-5.0); ALBUMIN/GLOBULIN RATIO 1.1 (1.0-2.7); ALKALINE PHOSPHATASE 54 U/L (46-116); ASPARTATE AMINO TRANSFERASE 17 U/L (15-37); BILIRUBIN,TOTAL 0.2 MG/DL (0.2-1.0)
[2020-02-04] MEDS ORDERED: LORazepam Inj 2mg/ml 1ml IV ONE (04:30)
[2020-02-04] MEDS ORDERED: Morphine Sulfate 4mg/ml Inj (IV USE ONLY) IVP ONE (04:30)
--- NOTE | 2020-02-04 06:03 | NUR ---
ED Nurse Note: Report given to ARMANDO CASTREJON
--- NOTE | 2020-02-04 06:05 | NUR ---
TRANSFER TO FLOOR: Patient transferred to [place] to rm [id number] via gurney accompanied by MERNA. Belongings given and checked with RN. Patient transferred to bed safely and endorsed to RN
[2020-02-04 07:08] VITALS: BP 96/58
[2020-02-04 08:00] VITALS: BP 105/69
--- NOTE | 2020-02-04 08:00 | NUR ---
NURSE NOTES: Received report from Lilly RN, pt a/a/o x4 laying in bed with no signs of distress or other issues at this time. pt c/o of nausea. but per report no vomiting was noted. IV on the right AC gauge #20 running 1/2 NS@70ml/hr. we will review and obtain admission orders. call light within reach, bed in lowest position. side rales up x2. I will f/u as needed.
--- NOTE | 2020-02-04 08:07 | Consultation ---
History of Present Illness General Date patient seen: Feb 04, 2020 Chief Complaint: Present Illness Allergies: Coded Allergies: No Known Allergies (Unverified , 11/08/16) Medication History Scheduled Famotidine* (Pepcid 20mg tablet*), 20 MG ORAL DAILY Levetiracetam (Keppra), 500 MG ORAL EVERY 12 HOURS No Known Medications* (NKM - No Known Medications*), 0 ., (Reported) Scheduled PRN Ondansetron Odt* (Zofran Odt*), 4 MG BC EVERY 6 HOURS PRN for Nausea & Vomiting Patient History Healthcare decision maker Resuscitation status Advanced Directive on File Physical Exam Last 24 Hour Vital Signs Date Time Temp Pulse Resp B/P (MAP) Pulse Ox O2 Delivery O2 Flow Rate FiO2 02/04/20 07:08 98.1 81 18 96/58 (71) 98 02/04/20 06:03 98.8 98 18 110/70 98 Room Air 02/04/20 05:17 98.8 02/04/20 03:57 98.8 98 18 110/70 98 Room Air 02/04/20 03:31 98.8 80 18 110/70 (83) 98 Room Air Laboratory Tests Test 02/04/20 04:04 White Blood Count 13.1 K/UL (4.8-10.8) H Red Blood Count 4.15 M/UL (4.20-5.40) L Hemoglobin 12.7 G/DL (12.0-16.0) Hematocrit 39.1 % (37.0-47.0) Mean Corpuscular Volume 94 FL (80-99) Mean Corpuscular Hemoglobin 30.6 PG (27.0-31.0) Mean Corpuscular Hemoglobin Concent 32.5 G/DL (32.0-36.0) Red Cell Distribution Width 12.5 % (11.6-14.8) Platelet Count 318 K/UL (150-450) Mean Platelet Volume 7.3 FL (6.5-10.1) Neutrophils (%) (Auto) 65.8 % (45.0-75.0) Lymphocytes (%) (Auto) 23.1 % (20.0-45.0) Monocytes (%) (Auto) 9.1 % (1.0-10.0) Eosinophils (%) (Auto) 0.8 % (0.0-3.0) Basophils (%) (Auto) 1.2 % (0.0-2.0) Sodium Level 139 MMOL/L (136-145) Potassium Level 3.4 MMOL/L (3.5-5.1) L Chloride Level 105 MMOL/L (98-107) Carbon Dioxide Level 26 MMOL/L (21-32) Anion Gap 8 mmol/L (5-15) Blood Urea Nitrogen 10 mg/dL (7-18) Creatinine 0.8 MG/DL (0.55-1.30) Estimat Glomerular Filtration Rate > 60 mL/min (>60) Glucose Level 107 MG/DL (74-106) H Calcium Level 8.3 MG/DL (8.5-10.1) L Magnesium Level 2.0 MG/DL (1.8-2.4) Total Bilirubin 0.2 MG/DL (0.2-1.0) Aspartate Amino Transf (AST/SGOT) 17 U/L (15-37) Alanine Aminotransferase (ALT/SGPT) 25 U/L (12-78) Alkaline Phosphatase 54 U/L (46-116) Total Protein 7.1 G/DL (6.4-8.2) Albumin 3.7 G/DL (3.4-5.0) Globulin 3.4 g/dL Albumin/Globulin Ratio 1.1 (1.0-2.7) Lipase 126 U/L (73-393) Salicylates Level 0.7 ug/mL (2.8-20) L Acetaminophen Level < 2 MCG/ML (10-30) L Serum Alcohol < 3 mg/dL Height (Feet): 5 Height (Inches): 6.00 Weight (Pounds): 130 Medications Current Medications Medications (Trade) Dose Ordered Sig/Fransisco Route PRN Reason Start Time Stop Time Status Last Admin Dose Admin Acetaminophen (Tylenol) 650 mg Q4H PRN ORAL Mild Pain (Pain Scale 1-3) 02/04/20 07:00 03/05/20 06:59 Famotidine (Pepcid) 20 mg DAILY ORAL 02/04/20 09:00 05/04/20 08:59 Levetiracetam (Keppra) 500 mg EVERY 12 HOURS ORAL 02/04/20 09:00 03/05/20 08:59 Ondansetron HCl (Zofran) 4 mg Q6H PRN IVP Nausea & Vomiting 02/04/20 07:10 03/05/20 07:09 Sodium Chloride 1,000 ml @ 70 mls/hr [id number] IV 02/04/20 08:00 03/05/20 07:59 Assessment/Plan Assessment/Plan: (1) Abdominal pain (2) Polysubstance abuse seen dictated John Díaz Feb 04, 2020 08:07
--- NOTE | 2020-02-04 09:37 | General Progress Note ---
Subjective Allergies: Coded Allergies: No Known Allergies (Unverified , 11/08/16) Objective Last 24 Hour Vital Signs Date Time Temp Pulse Resp B/P (MAP) Pulse Ox O2 Delivery O2 Flow Rate FiO2 02/04/20 07:08 98.1 81 18 96/58 (71) 98 02/04/20 06:03 98.8 98 18 110/70 98 Room Air 02/04/20 05:17 98.8 02/04/20 03:57 98.8 98 18 110/70 98 Room Air 02/04/20 03:31 98.8 80 18 110/70 (83) 98 Room Air Laboratory Tests 02/04/20 04:04: White Blood Count 13.1H, Red Blood Count 4.15L, Hemoglobin 12.7, Hematocrit 39.1, Mean Corpuscular Volume 94, Mean Corpuscular Hemoglobin 30.6, Mean Corpuscular Hemoglobin Concent 32.5, Red Cell Distribution Width 12.5, Platelet Count 318, Mean Platelet Volume 7.3, Neutrophils (%) (Auto) 65.8, Lymphocytes (% ) (Auto) 23.1, Monocytes (%) (Auto) 9.1, Eosinophils (%) (Auto) 0.8, Basophils (%) (Auto) 1.2, Sodium Level 139, Potassium Level 3.4L, Chloride Level 105, Carbon Dioxide Level 26, Anion Gap 8, Blood Urea Nitrogen 10, Creatinine 0.8, Es timat Glomerular Filtration Rate > 60, Glucose Level 107H, Calcium Level 8.3L, Magnesium Level 2.0, Total Bilirubin 0.2, Aspartate Amino Transf (AST/SGOT) 17, Alanine Aminotransferase (ALT/SGPT) 25, Alkaline Phosphatase 54, Total Protein 7.1, Albumin 3.7, Globulin 3.4, Albumin/Globulin Ratio 1.1, Lipase 126, Salicylates Level 0.7L, Acetaminophen Level < 2L, Serum Alcohol < 3 Height (Feet): 5 Height (Inches): 6.00 Weight (Pounds): 130 Assessment/Plan Assessment/Plan: GI Consult Assessment - ETOH abuse - likely acute EtOH gastritis Recommendations - symptoms now resolved - will advance diet to solids - patient declines endoscopy. OK to d/c if tolerated solids - Would d/c with daily pepcid x 1 month - d/c EtOH Thank you Fidencio Castellon MD 16, 2020 09:37
--- NOTE | 2020-02-04 09:47 | Consultation ---
Consult Note Consult Note I have asked to evaluate the patient at the request of Dr. Herrera for fluid and electrolyte management 24-year-old female here with nausea and vomiting. Patient was here in the emergency department yesterday for the same complaints after a large amount of cocaine use and alcohol use. She was found to be hypokalemic with a potassium of 2.7. She was admitted to telemetry. However soon after the patient was admitted she left AGAINST MEDICAL ADVICE because "I had to go take care of my dog." Patient says that she went home and her vomiting came back. Denies more drug or alcohol use. Complaining of diffuse abdominal discomfort. No headache, vision changes, fevers, chills, chest pain, palpitation, shortness of breath, cough, back pain, diarrhea, dysuria. The patient is actively vomiting here in the emergency department. Denies hematemesis. Of note the patient did have a CT scan performed yesterday which showed an ovarian cyst and signs of gastritis but no other acute abnormalities. Allergies: No Known Allergies (Unverified , 11/08/16) COVID-19 Screening Contact w/high risk pt: No Experienced COVID-19 symptoms?: No Patient has history of seizures PHYSICAL EXAMINATION: VITAL SIGNS: Temperature is 98, pulse 66, blood pressure 149/81. GENERAL APPEARANCE: No acute distress. HEAD AND NECK: Herlong conjunctivae. HEART: Normal rate. LUNGS: Clear. ABDOMEN: Soft. EXTREMITIES: No edema. LABORATORY AND DIAGNOSTIC DATA: WBC 13.1, hemoglobin 12.7, hematocrit 39.1, platelets 318. Sodium 139, potassium 3.4, chloride 105, bicarb 26, BUN 10, creatinine 0.8, and glucose is 107. The patient had a CT scan of the abdomen and pelvis that showed likely ovarian cysts bilaterally, fluid within small and large bowel which may be associated with infectious or inflammatory enteritis. . Assessment/Plan Hypokalemia Intractable vomiting History of seizure Hydrate Antiemetic Potassium supplement Per GI Per orders Jose G Rome MD Feb 04, 2020 09:47
--- NOTE | 2020-02-04 10:15 | Consultation ---
DATE OF CONSULTATION: 02/04/2020 PAIN MANAGEMENT CONSULTATION CONSULTING PHYSICIAN: Ziggy Mackenzie MD. REFERRING PHYSICIAN: Nicolasa Sequeira MD. PHYSICIAN DRAW FRAME TENDER: RAVEN Hdz. CHIEF COMPLAINT: Abdominal pain. HISTORY OF PRESENT ILLNESS: This is a 24-year-old female, who is being seen on the Med/Surg floor of [facility] for initial pain management. The patient was admitted under the care of Dr. Sequeira with a worsening abdominal pain, which has been for many years. It is chronic, acute pain, which she rates 8/10 at its worst. At this time, she reports there is no pain. When pain is found, it is a sharp pain, increasing with drinking alcohol and eating and is reduced with medication. She had bouts of nausea and vomiting, was brought to the emergency room, however, signed AMA due to issues with her dog, now was readmitted under the care of Dr. Sequeira, again with no complaints of pain and is comfortable in the bed wanting to drink coffee and to leave the hospital. Discussed with the patient about waiting until she is cleared by the vice president. She seems to understand and she has no other complaints at this time. PAST MEDICAL HISTORY: Depression. PAST SURGICAL HISTORY: Denies. SOCIAL HISTORY: She smokes cigarettes, marijuana, does cocaine and drinks alcohol. ALLERGIES: No known drug allergies. MEDICATIONS: Prozac and Seroquel. REVIEW OF SYSTEMS: Denies rash, fever, chills, sweating, dizziness, drowsiness, blurred vision, sore throat, or change in her weight. No shortness of breath or chest pain. No nausea, vomiting, diarrhea, or blood in the stool or urine. No dysuria. PHYSICAL EXAMINATION: GENERAL: Alert, awake, and oriented. VITAL SIGNS: Blood pressure 96/58, heart rate 81, oxygen saturation 98%, respirations 18, and temperature 98.1 degrees Fahrenheit. HEENT: PERRLA. NECK: Range of motion is full in all directions. No tenderness to paracervical muscles. No adenopathy. LUNGS: Decreased breath sounds bilaterally. HEART: S1 and S2 regular. ABDOMEN: Tenderness to palpation. BACK: Range of motion is full on flexion and extension. EXTREMITIES: Upper and lower extremity range of motion is full in all directions. No cyanosis. No clubbing. No edema. Sensory is intact. Reflexes are unobtainable. No adenopathy. ASSESSMENT AND PLAN: This is a 24-year-old female with abdominal pain and polysubstance abuse. The patient will be continued on Tylenol as needed. The patient was discussed with Dr. Mackenzie and Dr. Mackenzie concurred. We will follow the patient. Thank you very much for the courtesy of this consultation. Ziggy Mackenzie M.D. RAVEN Hdz DR: MILENA JOB#: [id number] CC:
[2020-02-04 10:38] LABS: APPEARANCE,URINE CLEAR; BILIRUBIN, URINE NEGATIVE (NEGATIVE); COLOR,URINE PALE YELLOW; GLUCOSE, URINE (UA) NEGATIVE (NEGATIVE); KETONES,URINE NEGATIVE (NEGATIVE); LEUKOCYTE ESTERASE ,URINE NEGATIVE (NEGATIVE); NITRITE,URINE NEGATIVE (NEGATIVE); PH,URINE 6 (4.5-8.0); PROTEIN,URINE NEGATIVE (NEGATIVE); UROBILINOGEN,URINE NORMAL MG/DL (0.0-1.0)
[2020-02-04 12:00] VITALS: BP 149/81
--- NOTE | 2020-02-04 13:14 | Consultation ---
DATE OF CONSULTATION: 02/04/2020 GASTROENTEROLOGY CONSULTATION CHIEF COMPLAINT: I was asked to see this patient by Dr. Nicolasa Sequeira for vomiting. HISTORY OF PRESENT ILLNESS: The patient is a 24-year-old woman who comes to the emergency room due to a 24-hour history of nausea and vomiting. She initially had some blood in her emesis but refused to be admitted and left against medical advice. She came back with more vomiting and was admitted. However, she feels better today and her symptoms are resolved. She states she has these episodes about four times a year after she drinks heavily and she did drink heavily on this occasion. She has been out the job for about 2 months or so. At this time; however, she feels back to normal with no abdominal pain, nausea, vomiting. She has never had endoscopy, I offered her one but she refused to have one. She wants to have her diet advance and discharged home. PAST MEDICAL HISTORY: Otherwise negative. FAMILY HISTORY: Noncontributory. SOCIAL HISTORY: The patient is single. She has no children. She uses marijuana and cocaine occasionally. She does not smoke. REVIEW OF SYSTEMS: Otherwise negative. PHYSICAL EXAMINATION: GENERAL: The patient is a well-developed and well-nourished woman in no distress HEENT: Normocephalic and atraumatic. Sclerae anicteric. Oropharynx clear. NECK: Supple. CHEST: Clear to auscultation. CARDIOVASCULAR: Regular rate. ABDOMEN: Soft, nontender, and nondistended. EXTREMITIES: Revealed no edema. LABORATORY AND DIAGNOSTIC DATA: Laboratory data noted. Imaging studies reviewed. ASSESSMENT: This patient presents with acute 1-day history of nausea and vomiting, which is now resolved. She has had these episodes before on multiple occasions and they all will occur after alcohol binge. She was advised strongly to stop drinking alcohol. She did have some mild hematemesis two days ago but her labs are normal. She refused endoscopy and therefore can be treated empirically. RECOMMENDATIONS: 1. Advance diet. 2. Acid blockade for about 1 month. 3. Discontinue antibiotics. Fidencio Rogel M.D. DR: Thao JOB#: [id number] CC:
--- NOTE | 2020-02-04 13:40 | NUR ---
CASE MANAGEMENT:INITIAL REVIEW 24 YR OLD FEMALE BIBA FROM HOME CC;NAUSEA. VOMITING. DIARRHEA. SI;INTRACTABLE VOMITING. ABD PAIN. HYPOKALEMIA. 98.8 98 18 96/58 98% ON RA WBC 13.1 K+ 3.4 UA ~ NEGATIVE URINE TOX (+) OPIATES, BENZODIAZEPINES, THC IS; ZOFRAN IV PEPCID IV LIDOCAINE PO ONCE BENTYL PO MYLANTA PO IVF NS BOLUS HALDOL IV ATIVAN IV MORPHINE IV KCL IV ADMITTED TO MED SURG MED SURG STATUS DCP;FROM HOME
--- NOTE | 2020-02-04 17:30 | NUR ---
NURSE NOTES: Received order to d/c. given discharge instructions and belongings list to patient. IV removed prior to d/c. pt will call [facility] to take her home. pt left the floor with no signs of distress or other issues at this time. - pt is also aware that needs to f/u with her PCC within a week of d/c. pt verbalized understanding.
--- NOTE | 2020-02-04 19:30 | Consultation ---
DATE OF CONSULTATION: 02/04/2020 INFECTIOUS DISEASE CONSULTATION CONSULTING PHYSICIAN: Nolberto Schultz MD PRIMARY ATTENDING PHYSICIAN: Nicolasa Sequeira MD REASON FOR CONSULT: Leukocytosis, gastroenteritis. HISTORY OF PRESENT ILLNESS: This is a 24-year-old female, admitted early this morning because of nausea and vomiting. The patient has history of substance abuse including cocaine and alcohol, came to the hospital actually one day before, but signed against AMA and went home. There were no fevers. PAST MEDICAL HISTORY: Includes seizure in 2014 and 2016, substance abuse. ALLERGIES: No known drug allergies. MEDICATIONS: Getting potassium chloride, famotidine, Keppra, sodium chloride, Zofran, Tylenol. Got haloperidol one dose, morphine. SOCIAL HISTORY: Single, has history of cocaine and drug abuse. REVIEW OF SYSTEMS: Unobtainable. The patient is currently resting. PHYSICAL EXAMINATION: VITAL SIGNS: Temperature is 98, pulse 66, blood pressure 149/81. GENERAL APPEARANCE: No acute distress. HEAD AND NECK: [place] conjunctivae. HEART: Normal rate. LUNGS: Clear. ABDOMEN: Soft. EXTREMITIES: No edema. LABORATORY AND DIAGNOSTIC DATA: WBC 13.1, hemoglobin 12.7, hematocrit 39.1, platelets 318. Sodium 139, potassium 3.4, chloride 105, bicarb 26, BUN 10, creatinine 0.8, and glucose is 107. The patient had a CT scan of the abdomen and pelvis that showed likely ovarian cysts bilaterally, fluid within small and large bowel which may be associated with infectious or inflammatory enteritis. IMPRESSION: Leukocytosis, gradually getting better; gastroenteritis; has cocaine abuse and alcohol abuse; seizure disorder; ovarian cysts. RECOMMENDATION: Observe off antibiotic. We will follow up CBC. At the end of my exam, I thank Dr. Sequeira for involving me in the care of this patient. Nolberto Schultz M.D. DR: ISA JOB#: [id number] CC: RAVINDRA
--- NOTE | 2020-02-04 22:45 | History and Physical Report ---
DATE OF ADMISSION: 02/04/2020 HISTORY OF PRESENT ILLNESS: The patient came in initially to the ER, left against medical advice, and came back with same a couple of hours later. Let this serve as H and P for this admission since the first time, the patient was not even admitted. The patient came a couple of hours after leaving the emergency room against medical advice, and came back because she was still vomiting. She was having persistent vomiting for two days. Potassium was very low, received IV high potassium, and admitted for IV potassium. WBC was borderline elevated. The patient denied fever. Denies shortness of breath. Denies nausea. Denies fever or chills. PAST MEDICAL HISTORY: Depression. PAST SURGICAL HISTORY: None. SOCIAL HISTORY: Denies history of alcohol abuse. Does have history of drug abuse. Does have history of smoking. MEDICATIONS: Takes antidepressants. FAMILY HISTORY: Noncontributory. REVIEW OF SYSTEMS: HEENT: Denies headaches. RESPIRATORY: Denies shortness of breath. Denies cough. CARDIOVASCULAR: Denies chest pain. GASTROINTESTINAL: Reports persistent vomiting and abdominal cramps for about a day. EXTREMITIES: Denies pain. CENTRAL NERVOUS SYSTEM: Denies change in speech pattern. Denies headache. PHYSICAL EXAMINATION: VITAL SIGNS: Temperature 97.2, pulse 78, and blood pressure 130/70. HEENT: PERRLA. NECK: Supple. No lymphadenopathy. CHEST: Clear to auscultation. CARDIOVASCULAR: Regular rate and rhythm. No murmurs or extra sounds. GASTROINTESTINAL: Positive bowel sounds. Abdomen is soft. No organomegaly. Nontender. EXTREMITIES: No edema. NEUROLOGIC: Moves all four extremities. Reflexes on both sides. LABORATORY DATA: Repeat potassium 3.1. ASSESSMENT AND PLAN: Hypokalemia due to repetitive intractable vomiting. I have consulted , Dr. Rogel, Dr. Nolberto Schultz. We will monitor the patient closely. Nicolasa Sequeira M.D. DR: Court JOB#: [id number] CC:
--- NOTE | 2020-02-06 11:51 | Discharge Summary ---
Discharge Summary Discharge Summary _ DATE OF ADMISSION: 02/04/2020 DATE OF DISCHARGE: 02/04/2020 DISCHARGED BY: Dr. Sequeira REASON FOR ADMISSION: 24 years old female with past medical history of seizure disorder, presented with nausea and vomiting. Patient was in the emergency department day prior and found to have alcohol use along with cocaine. At that time patient was hypokalemic with potassium of 2.7 . She was admitted to telemetry [facility], but signed AGAINST MEDICAL ADVICE . Upon arrival home patient stated that she vomited again . She denied any blood or bile in her vomitus. She denied further drug or alcohol use. She reported diffuse abdominal discomfort. No headache. No vision changes. No fever or chills. No chest pain, palpitation or shortness of breath or cough. No back pain, diarrhea or dysuria. Patient actively was vomiting in the emergency department. CT scan done on the prior admission showed ovarian cyst and signs of gastritis. Laboratory work-up revealed mild leukocytosis WBC 13.1, stable hemoglobin , hematocrit. Potassium 3.4; stable other electrolytes and renal parameters. Glucose 107. Magnesium 2.0. Urinalysis revealed no evidence of UTI. Urine tox screen still showed positive cocaine and marijuana. Serum alcohol level less than 3. Patient received additional potassium supplement, analgesic, antiemetic, GI cocktail with Viscous Lidocaine, Benadryl and Mylanta, Pepcid, and admitted for further management. CONSULTANTS: ID specialist Dr. Nolberto Schultz GI specialist Dr. Rogel Hand Binder Stripper Dr. [place] pain specialist Dr. Mackenzie HOSPITAL COURSE Patient admitted to medical surgical floor. Patient started on the IV hydration. Pain management was addressed as per pain specialist recommendation. Antiemetic provided as needed. GI prophylaxis with Pepcid provided Seizure precaution maintained. Keppra continued. Per GI specialist, patient had likely acute ETOH gastritis. Patient was counseled on abstinence from ETOH. Diet was slowly advanced to solid patient declined endoscopy. Patient was able to tolerate solid diet. Prescription provided for Pepcid for 1 month. Renal parameters and electrolytes were closely monitored. Potassium further corrected. Nephrotoxic's were avoided. No need for any antibiotic as per ID specialist. Patient clinically stabilized and was ready for discharge. Due to rapid and unexpected improvement in patient condition, patient was discharged in 1 day. FINAL DIAGNOSES: Alcohol abuse Likely acute ETOH gastritis Abdominal pain Polysubstance abuse Seizure disorder h Hypokalemia Intractable vomiting DISCHARGE MEDICATIONS: See Medication Reconciliation list. DISCHARGE INSTRUCTIONS: Patient was discharged home. Follow-up with a primary care provider in 1 week I have been assigned to dictate discharge summary for this account. I was not involved in the patient's management. Sherry Borges NP Feb 06, 2020 11:51
--- NOTE | 2020-02-08 16:58 | Cardiology Report ---
APPROVED REPORT EKG Measurement Heart [id number] <Conclusion> Normal sinus rhythm with sinus arrhythmia Normal ECG
== END 2020-02-04 17:10 | disposition home or self-care (01) | DRG 392 ==
LOC: EDBD 03:26 → EDUNIT# 03:26 → EMR 03:39 → 3E 04:54 → EDBEDREQ 05:33
DX: K29.20 Alcoholic gastritis without bleeding (principal); F10.10 Alcohol abuse, uncomplicated; F19.10 Other psychoactive substance abuse, uncomplicated; G40.909 Epilepsy, unspecified, not intractable, without status epilepticus; E87.6 Hypokalemia; F17.210 Nicotine dependence, cigarettes, uncomplicated
CPT/HCPCS: 36415; 80053; 80307; 81003; 83690; 83735; 85025; 93005; 96365; 96375; 99285; G0480; J2405; J8499